=== PATIENT | female | born 1985 | race Caucasian/White ===

== ENCOUNTER 2016-10-05 12:49 | Emergency (ER) | payer OTHER ==
[~2016-10-05] VITALS: Ht 162.6 cm; Wt 90.0 kg
[2016-10-05 12:50] VITALS: BP 154/89; PULSE 117; RESP 16; TEMP 97.9; O2SAT 98
--- NOTE | 2016-10-05 14:04 | PD ---
HPI Chief Complaint: Injury Time Seen by Provider: 14:04 Travel History International Travel<30 days: No Contact w/Intl Traveler<30days: No Traveled to known affect area: No History of Present Illness HPI 30-year-old female presents to the emergency Department with complaint of right ankle pain and swelling since yesterday after jumping over a barbell while working out and twisting her right ankle. She has been ambulatory on the affected extremity, minimally. She denies paresthesias, loss of sensation to the affected extremity. Has taken ibuprofen with some relief of pain. Has tried icing, elevating, and compressing it with Matias bandage. Reports pain and bruising to the lateral aspect. Denies fever, chills, nausea, vomiting. No known allergies. Denies significant past medical history. No other modifying factors or associated signs and symptoms. PFSH Past Medical History ?: Not Social History Tobacco Use: No Allergies-Medications (Allergen,Severity, Reaction): Coded Allergies: No Known Allergies (Unverified , 10/05/16) Review of Systems Except as stated in HPI: all other systems reviewed are Neg Physical Exam Narrative GENERAL: Well-nourished, well-developed female patient, in no acute distress SKIN: Warm and dry. HEAD: Atraumatic. Normocephalic. EYES: Pupils equal and round. No scleral icterus. No injection or drainage. ENT: Mucosa pink and moist. Airway patent. NECK: Trachea midline. CARDIOVASCULAR: Regular rate. RESPIRATORY: No accessory muscle use. GASTROINTESTINAL: Flat. MUSCULOSKELETAL: Right ankle mildly edematous and with point tenderness to the lateral malleolar zone; ecchymosis noted to the lateral malleolar zone; no obvious deformity; decreased range of motion. Right lower extremity is supple and non-tense with 2+ pedal pulse and sensory intact and without erythema or edema. No obvious deformities. No clubbing. No cyanosis. No edema. NEUROLOGICAL: Awake and alert. Oriented 3. No obvious cranial nerve deficits. Motor grossly within normal limits. Normal speech. PSYCHIATRIC: Appropriate mood and affect; insight and judgment normal. Data Data Last Documented VS Vital Signs Date Time Temp Pulse Resp B/P Pulse Ox O2 Delivery O2 Flow Rate FiO2 10/05/16 12:50 97.9 117 16 154/89 98 Orders Ankle, Complete ([id number]) (10/05/16 14:04) Ice/Cold Pack (10/05/16 14:04) MDM Medical Decision Making Medical Screen Exam Complete: Yes Emergency Medical Condition: Yes Medical Record Reviewed: Yes Differential Diagnosis Ankle fracture, ankle dislocation, ankle sprain Narrative Course 30-year-old female with right ankle injury. I offered the patient a nonnarcotic while in the ER and she declined. Right ankle x-ray and ice pack. 1430: Heart rate recheck approximately 80-90 bpm. 1511: Right ankle x-ray with no acute findings. Matias bandage, ankle stirrup splint, crutches provided for support. Ibuprofen prescribed for home. Instructed patient to follow up if symptoms persist greater than 7-10 days. Patient verbalizes understanding and agreement with treatment plan. Patient is medically cleared and stable for discharge. Discussed reasons to return to the emergency department. Instructed patient to follow up with primary care provider. Patient agrees with treatment plan. The patients vital signs are stable and the patient is stable for outpatient follow-up and treatment. Patient discharged home, stable and in no acute distress. Diagnosis Primary Impression: Right ankle sprain Qualified Code: S93.401A - Sprain of right ankle, unspecified ligament, initial encounter Referrals: Primary Care Physician Patient Instructions: Ankle Sprain (ED), Ankle Stirrup Splint (ED), Crutch Instructions (ED), General Instructions Departure Forms: Tests/Procedures, Work Release Enter return to work date: Oct 11, 2016 Additional Instructions: Tylenol or ibuprofen as directed and as needed for pain and inflammation Rest, ice, compress, and elevate extremity to decrease pain and inflammation Ankle Brace for support Crutches for support Avoid aggravating activity; increase activity as tolerated Follow-up with primary care provider Return to the emergency department immediately with worsening symptoms Med/Other Pt SpecificInfo: Prescription(s) given Scripts Ibuprofen 800 Mg Vxy311 Mg PO Q6HR PRN (PAIN) #30 TAB Ref 0 Prov:Emily Cherry 10/05/16 Disposition: 01 DISCHARGE HOME Condition: Stable Emily Cherry Oct 05, 2016 14:04
--- NOTE | 2016-10-05 14:52 | RADRPT ---
EXAM DATE/TIME: 10/05/2016 14:26 [facility] COMPARISON: No previous studies available for comparison. INDICATIONS : Right ankle pain starting today. MEDICAL HISTORY : None. SURGICAL HISTORY : None. ENCOUNTER: Initial ACUITY: 1 day PAIN SCORE: 5/10 LOCATION: Right Ankle FINDINGS: 3 views right ankle. Bone alignment within normal limits. No evidence of fracture. Ankle mortise int act. Small plantar calcaneal spur. CONCLUSION: No evidence of fracture. Dave Finley MD on October 05, 2016 at 14:49 Board Certified Radiologist. This report was verified electronically.
[2016-10-05] MEDS ORDERED: IBUP800T23 PO (15:13)
== END 2016-10-05 15:51 | disposition home or self-care (01) ==
LOC: NETRI 12:49
DX: S93.401A Sprain of unspecified ligament of right ankle, initial encounter (principal); X50.1XXA Overexertion from prolonged static or awkward postures, initial encounter; Y93.39 Activity, other involving climbing, rappelling and jumping off
CPT/HCPCS: 73610; 99283; E0113; L1906